=== PATIENT | female | born 1935 | race Two or more races ===

== ENCOUNTER 2023-03-05 04:59 | Inpatient (IN) | payer MEDICAID, OTHER ==
[~2023-03-05] VITALS: Ht 152.4 cm; Wt 59.8 kg
[2023-03-05] VITALS (12 sets, daily range): BP systolic 101–110; BP diastolic 47–63; PULSE 77–113; RESP 16–20; TEMP 97.7–98; O2SAT 93–100
[2023-03-05] MEDS ORDERED: FUROSEMIDE 40 MG/4 ML VIAL IV ONE (05:15)
[2023-03-05] MEDS ORDERED: PIPERACILLIN-TAZOB 3.375GM 100 ML IV ONE (05:15)
[2023-03-05] MEDS ORDERED: ALBUTEROL SULF 2.5 MG/0.5ML(0.5%) NEB SOLN HHN ONE (05:15)
[2023-03-05 05:55] LABS: Alanine Aminotransferase 25 U/L (7-40); Albumin 3.3 g/dL (3.2-4.8); Alkaline Phosphatase 136 U/L (46-116); Anion Gap 9 (5-15); Aspartate Aminotransferase 44 U/L (13-40); BUN/Creatinine Ratio 13.5 (10.0-20.0); Bilirubin, Total 0.3 mg/dL (0.2-1.0); Blood Urea Nitrogen 15 mg/dL (9-23); Calcium 7.2 mg/dL (8.7-10.4); Carbon Dioxide 22 mmol/L (20-30); Chloride 104 mmol/L (98-107); Glucose 149 mg/dL (74-106); Magnesium 1.7 mg/dL (1.6-2.6); Potassium 3.4 mmol/L (3.5-5.1); Sodium 135 mmol/L (136-145)
[2023-03-05 06:00] LABS: Basophils # (auto) 0.1 10 ^3/uL (0-0.2); Eosinophils # (auto) 0 10 ^3/uL (0-0.8); Hemoglobin 7.5 g/dL (12.2-16.2); Nucleated Red Blood Cells % 0.2 %
[2023-03-05 06:05] LABS: Lactic Acid w/Reflex 2.7 mmol/L (0.4-2.0)
[2023-03-05 06:08] LABS: Basophils % (auto) 0.5 % (0.0-2.0); Hematocrit 26.5 % (36.0-46.0); Lymphocytes # (auto) 3.7 10 ^3/uL (0.4-5.4); Lymphocytes % (auto) 19.9 % (10.0-50.0); Mean Corpuscular Hemoglobin 18.5 pg (28.0-32.0); Mean Corpuscular Hgb Conc. 28.3 g/dL (32.0-36.0); Mean Corpuscular Volume 65.4 fL (80.0-100.0); Monocytes # (auto) 1.7 10 ^3/uL (0-1.3); Monocytes % (auto) 8.9 % (0.0-12.0); Neutrophils # (auto) 13.3 10 ^3/uL (1.6-8.6); Neutrophils % (auto) 70.7 % (37.0-80.0); Red Blood Cells 4.05 10^6/uL (4.0-5.20); White Blood Cell 18.8 10^3/uL (4.4-10.8)
[2023-03-05 06:13] LABS: Red Cell Distribution Width 22.8 % (11.8-14.3)
[2023-03-05 06:21] LABS: Rapid Influenza A Negative (Negative); Rapid Influenza B Negative (Negative)
[2023-03-05 06:23] LABS: Urine Bacteria FEW /hpf (None Seen); Urine Blood 3+ /uL (Negative); Urine Clarity Clear (Clear); Urine Color Yellow (Yellow); Urine Hyaline Cast FEW /lpf (0 - 2); Urine Mucus FEW (None Seen); Urine Protein, UAD 3+ (Negative); Urine Specific Gravity 1.018 (1.001-1.035); Urine Urobilinogen Normal (Negative); Urine WBC 10 /hpf (0 - 5); Urine pH 6.5 (5.0-8.0)
[2023-03-05] MEDS ORDERED: ALBUTEROL MEDNEB 2.5 mg/3ml NEB ONE (06:28)
[2023-03-05] MEDS ORDERED: levoFLOXacin 500MG 100 ML IV ONE (06:30)
[2023-03-05 06:40] LABS: Anisocytosis Slight; Hypochromia Marked; Platelet Estimate Increased
[2023-03-05 07:07] LABS: COVID19 ANTIGEN SOFIA FIA NEGATIVE (NEGATIVE)
[2023-03-05] MEDS ORDERED: SODIUM CHLORIDE 0.9% 2,250 ML IV ONE (07:30)
[2023-03-05] MEDS ORDERED: IOHEXOL 300 MG/ML 100ML BOTTLE IJ ONE (08:00)
[2023-03-05] MEDS ORDERED: ACETAMINOPHEN 325 MG TAB PO PRN (12:15)
[2023-03-05] MEDS ORDERED: NITROGLYCERIN 0.4 MG SL TAB SL PRN (12:15)
[2023-03-05] MEDS ORDERED: ALBUTEROL MEDNEB 2.5 mg/3ml NEB NEB PRN (12:15)
[2023-03-05] MEDS ORDERED: ONDANSETRON HCL 4 MG/2 ML VIAL IV PRN (12:15)
[2023-03-05] MEDS ORDERED: VANCOMYCIN PER PHARMACY 0 MG IV SCH (12:15)
[2023-03-05] MEDS ORDERED: MORPHINE SULFATE INJ 2 MG/ml SYRG IV PRN (12:15)
[2023-03-05] MEDS ORDERED: POTASSIUM EFFERVESENT TAB 25 MEQ PO ONE (12:15)
[2023-03-05] MEDS ORDERED: CEFEPIME 1GM/ 50ML 50 ML IV ONE (12:15)
[2023-03-05] MEDS ORDERED: methylPREDNISolone SOD SUCC 125 MG/2 ML VL IV ONE (12:15)
[2023-03-05] MEDS ORDERED: PANTOPRAZOLE 40 MG/10 ML VIAL INJ IV ONE (12:30)
[2023-03-05 12:39] LABS: Triglycerides 78 mg/dL (< 150)
[2023-03-05 12:40] LABS: LDL Cholesterol 79 mg/dL (< 100)
[2023-03-05 12:41] LABS: Cholesterol 123 mg/dL (< 200); HDL Cholesterol 35 mg/dL (40-59)
[2023-03-05] MEDS ORDERED: VANCOMYCIN 1GM/200ML 250 ML IV ONE (13:00)
[2023-03-05] MEDS: SODIUM CHLORIDE 0.9% 1,000 ML IV SCH (15:09)
[2023-03-05] MEDS: IPRATROPIUM BROM 0.5 MG/2.5ML INH SOL NEB SCH ×3 (15:15→22:01)
[2023-03-05] MEDS: ALBUTEROL MEDNEB 2.5 mg/3ml NEB NEB SCH ×3 (15:15→22:01)
[2023-03-05 15:27] LABS: Base Excess -2.6 mmol/L (-2.0-2.0)
[2023-03-05] MEDS: CEFEPIME 1GM/ 50ML 50 ML IV SCH (21:29)
[2023-03-05] MEDS: methylPREDNISolone SOD SUCC 40 MG/ML VL IV SCH (21:29)
[2023-03-06] VITALS (21 sets, daily range): BP systolic 101–143; BP diastolic 44–63; PULSE 75–107; RESP 12–20; TEMP 97.6–98.2; O2SAT 97–100
[2023-03-06] MEDS: SODIUM CHLORIDE 0.9% 1,000 ML IV SCH ×3 (01:35→22:02)
[2023-03-06 01:41] LABS: Lactic Acid w/Reflex 2.4 mmol/L (0.4-2.0)
[2023-03-06] MEDS: ALBUTEROL MEDNEB 2.5 mg/3ml NEB NEB SCH ×6 (02:14→22:22)
[2023-03-06] MEDS: IPRATROPIUM BROM 0.5 MG/2.5ML INH SOL NEB SCH ×6 (02:14→22:22)
[2023-03-06 05:38] LABS: Basophils # (auto) 0 10 ^3/uL (0-0.2); Eosinophils # (auto) 0 10 ^3/uL (0-0.8); Hemoglobin 7.1 g/dL (12.2-16.2)
[2023-03-06 05:46] LABS: Hematocrit 24.9 % (36.0-46.0); Lymphocytes # (auto) 1.3 10 ^3/uL (0.4-5.4); Lymphocytes % (auto) 7.5 % (10.0-50.0); Mean Corpuscular Hemoglobin 18.2 pg (28.0-32.0); Mean Corpuscular Hgb Conc. 28.5 g/dL (32.0-36.0); Monocytes # (auto) 0.4 10 ^3/uL (0-1.3); Monocytes % (auto) 2.2 % (0.0-12.0); Neutrophils # (auto) 15.3 10 ^3/uL (1.6-8.6); Neutrophils % (auto) 90.3 % (37.0-80.0); Red Blood Cells 3.89 10^6/uL (4.0-5.20); White Blood Cell 16.9 10^3/uL (4.4-10.8)
[2023-03-06 05:48] LABS: Alanine Aminotransferase 18 U/L (7-40); Alkaline Phosphatase 94 U/L (46-116); Anion Gap 8 (5-15); Aspartate Aminotransferase 42 U/L (13-40); BUN/Creatinine Ratio 16.4 (10.0-20.0); Bilirubin, Total 0.3 mg/dL (0.2-1.0); Blood Urea Nitrogen 21 mg/dL (9-23); Calcium 7.1 mg/dL (8.7-10.4); Carbon Dioxide 23 mmol/L (20-30); Chloride 105 mmol/L (98-107); Glucose 179 mg/dL (74-106); Potassium 3.5 mmol/L (3.5-5.1); Sodium 136 mmol/L (136-145); Total Protein 5.7 g/dL (5.7-8.2)
[2023-03-06 06:23] LABS: Red Cell Distribution Width 23.7 % (11.8-14.3)
[2023-03-06] MEDS: VANCOMYCIN 500 MG in D5W 5% 100 ML IV SCH (09:29)
[2023-03-06] MEDS ORDERED: ENOXAPARIN SOD 40 MG/0.4 ML SYRINGE SC SCH (10:00)
[2023-03-06] MEDS: methylPREDNISolone SOD SUCC 40 MG/ML VL IV SCH ×2 (10:43→22:02)
[2023-03-06] MEDS: CEFEPIME 1GM/ 50ML 50 ML IV SCH ×2 (10:43→21:51)
[2023-03-06] MEDS: PANTOPRAZOLE 40 MG/10 ML VIAL INJ IV SCH (10:43)
[2023-03-06 13:09] LABS: Lactic Acid w/Reflex 2.2 mmol/L (0.4-2.0)
[2023-03-06 16:14] LABS: Lactic Acid w/Reflex 2.1 mmol/L (0.4-2.0)
[2023-03-07] VITALS (19 sets, daily range): BP systolic 126–162; BP diastolic 54–73; PULSE 73–104; RESP 16–20; TEMP 97.8–98.8; O2SAT 97–100
[2023-03-07] MEDS: IPRATROPIUM BROM 0.5 MG/2.5ML INH SOL NEB SCH ×3 (02:21→10:21)
[2023-03-07] MEDS: ALBUTEROL MEDNEB 2.5 mg/3ml NEB NEB SCH ×4 (02:21→13:21)
[2023-03-07] MEDS: VANCOMYCIN 500 MG in D5W 5% 100 ML IV SCH (05:12)
[2023-03-07] MEDS: PANTOPRAZOLE 40 MG/10 ML VIAL INJ IV SCH (09:28)
[2023-03-07] MEDS: methylPREDNISolone SOD SUCC 40 MG/ML VL IV SCH (09:28)
[2023-03-07] MEDS: CEFEPIME 1GM/ 50ML 50 ML IV SCH ×2 (09:29→21:33)
[2023-03-07] MEDS ORDERED: ENOXAPARIN SOD 30 MG/0.3 ML SYRINGE SC SCH (10:00)
[2023-03-07] MEDS ORDERED: ENOXAPARIN SOD 30 MG/0.3 ML SYRINGE SC ONE (11:15)
[2023-03-07 11:44] LABS: Basophils # (auto) 0 10 ^3/uL (0-0.2); Basophils % (auto) 0.1 % (0.0-2.0); Eosinophils # (auto) 0 10 ^3/uL (0-0.8); Hematocrit 24.2 % (36.0-46.0); Lymphocytes # (auto) 1.7 10 ^3/uL (0.4-5.4); Lymphocytes % (auto) 7.2 % (10.0-50.0); Mean Corpuscular Hemoglobin 18.4 pg (28.0-32.0); Mean Corpuscular Hgb Conc. 28.8 g/dL (32.0-36.0); Monocytes # (auto) 0.7 10 ^3/uL (0-1.3); Monocytes % (auto) 2.8 % (0.0-12.0); Neutrophils # (auto) 21.6 10 ^3/uL (1.6-8.6); Neutrophils % (auto) 89.9 % (37.0-80.0); Nucleated Red Blood Cells % 0.1 %; Red Blood Cells 3.78 10^6/uL (4.0-5.20); White Blood Cell 24.1 10^3/uL (4.4-10.8)
[2023-03-07] MEDS ORDERED: HEPARIN DRIP/D5W 100UNITS/ML 250 ML IV SCH ×2 (11:45→23:30)
[2023-03-07] MEDS ORDERED: HEPARIN SODIUM (PORCINE) 5000 UNITS/ML 1ML VIAL IV ONE (11:45)
[2023-03-07 11:51] LABS: Red Cell Distribution Width 23.7 % (11.8-14.3)
[2023-03-07 11:57] LABS: INR 1.01 (0.9-1.15); Partial Thromboplastin Time 38.6 SEC (24.5-34.5); Prothrombin Time 10.6 sec (9.3-11.8)
[2023-03-07 11:58] LABS: Alanine Aminotransferase 22 U/L (7-40); Albumin 3.2 g/dL (3.2-4.8); Alkaline Phosphatase 93 U/L (46-116); Anion Gap 10 (5-15); Aspartate Aminotransferase 36 U/L (13-40); BUN/Creatinine Ratio 23.3 (10.0-20.0); Blood Urea Nitrogen 30 mg/dL (9-23); Calcium 7.4 mg/dL (8.7-10.4); Carbon Dioxide 19 mmol/L (20-30); Chloride 104 mmol/L (98-107); Glucose 194 mg/dL (74-106); Potassium 3.7 mmol/L (3.5-5.1); Sodium 133 mmol/L (136-145)
[2023-03-07 11:59] LABS: Bilirubin, Total 0.3 mg/dL (0.2-1.0)
[2023-03-07 12:18] LABS: Anisocytosis Moderate; Hypochromia Moderate
[2023-03-07 12:19] LABS: Platelet Estimate Increased; Tear Drop Cells FEW
[2023-03-07] MEDS: SODIUM CHLORIDE 0.9% 1,000 ML IV SCH (16:45)
[2023-03-07] MEDS ORDERED: ALBUTEROL MEDNEB 2.5 mg/3ml NEB NEB PRN (18:00)
[2023-03-07 19:09] LABS: Basophils # (auto) 0 10 ^3/uL (0-0.2); Eosinophils # (auto) 0 10 ^3/uL (0-0.8); Hemoglobin 8.7 g/dL (12.2-16.2); Nucleated Red Blood Cells % 0.2 %
[2023-03-07 19:10] LABS: Hematocrit 30.5 % (36.0-46.0); Lymphocytes # (auto) 1.3 10 ^3/uL (0.4-5.4); Lymphocytes % (auto) 6.8 % (10.0-50.0); Mean Corpuscular Hemoglobin 20.1 pg (28.0-32.0); Mean Corpuscular Hgb Conc. 28.6 g/dL (32.0-36.0); Mean Corpuscular Volume 70.3 fL (80.0-100.0); Monocytes # (auto) 0.4 10 ^3/uL (0-1.3); Monocytes % (auto) 2.3 % (0.0-12.0); Neutrophils # (auto) 17.6 10 ^3/uL (1.6-8.6); Neutrophils % (auto) 90.9 % (37.0-80.0); Red Blood Cells 4.33 10^6/uL (4.0-5.20); White Blood Cell 19.3 10^3/uL (4.4-10.8)
[2023-03-07 19:12] LABS: Red Cell Distribution Width 26.2 % (11.8-14.3)
[2023-03-08] VITALS (9 sets, daily range): BP systolic 147–169; BP diastolic 47–60; PULSE 60–71; RESP 16–20; TEMP 97.9–98.8; O2SAT 96–100
[2023-03-08] MEDS: VANCOMYCIN 500 MG in D5W 5% 100 ML IV SCH (01:34)
[2023-03-08 05:14] LABS: Basophils # (auto) 0 10 ^3/uL (0-0.2); Eosinophils # (auto) 0 10 ^3/uL (0-0.8); Monocytes # (auto) 0.5 10 ^3/uL (0-1.3); Nucleated Red Blood Cells % 0.2 %
[2023-03-08 05:17] LABS: Basophils % (auto) 0.1 % (0.0-2.0); Hematocrit 29.5 % (36.0-46.0); Lymphocytes # (auto) 1.8 10 ^3/uL (0.4-5.4); Lymphocytes % (auto) 10.9 % (10.0-50.0); Mean Corpuscular Hemoglobin 20.9 pg (28.0-32.0); Mean Corpuscular Hgb Conc. 30.5 g/dL (32.0-36.0); Mean Corpuscular Volume 68.6 fL (80.0-100.0); Neutrophils # (auto) 13.9 10 ^3/uL (1.6-8.6); White Blood Cell 16.2 10^3/uL (4.4-10.8)
[2023-03-08 05:33] LABS: Alanine Aminotransferase 24 U/L (7-40); Alkaline Phosphatase 82 U/L (46-116); Anion Gap 8 (5-15); BUN/Creatinine Ratio 24.3 (10.0-20.0); Blood Urea Nitrogen 27 mg/dL (9-23); Calcium 7.4 mg/dL (8.7-10.4); Carbon Dioxide 20 mmol/L (20-30); Chloride 107 mmol/L (98-107); Glucose 138 mg/dL (74-106); Magnesium 2.2 mg/dL (1.6-2.6); Potassium 4.3 mmol/L (3.5-5.1); Sodium 135 mmol/L (136-145)
[2023-03-08 05:34] LABS: Albumin 2.9 g/dL (3.2-4.8); Aspartate Aminotransferase 37 U/L (13-40)
[2023-03-08 05:35] LABS: Bilirubin, Total 0.4 mg/dL (0.2-1.0); Total Protein 5.7 g/dL (5.7-8.2)
[2023-03-08 05:38] LABS: Red Cell Distribution Width 25.5 % (11.8-14.3)
[2023-03-08 05:47] LABS: INR 1.03 (0.9-1.15); Prothrombin Time 10.8 sec (9.3-11.8)
[2023-03-08 06:08] LABS: Partial Thromboplastin Time > 139.0 SEC (24.5-34.5)
[2023-03-08 06:18] LABS: CRP High Sensitivity 2.87 mg/dL (<1.0)
[2023-03-08] MEDS ORDERED: HEPARIN DRIP/D5W 100UNITS/ML 250 ML IV SCH (06:45)
[2023-03-08 08:08] LABS: Anisocytosis Slight; Hypochromia Moderate; Platelet Estimate Increased
[2023-03-08] MEDS ORDERED: ENOXAPARIN SOD 60 MG/0.6 ML SYRINGE SC SCH (10:00)
[2023-03-08] MEDS: CEFEPIME 1GM/ 50ML 50 ML IV SCH (10:06)
[2023-03-08] MEDS: PANTOPRAZOLE 40 MG/10 ML VIAL INJ IV SCH (10:09)
[2023-03-08 10:18] LABS: Hepatitis B Surface Antigen Negative (Negative)
[2023-03-08 10:39] LABS: Hepatitis C Antibody Negative (Negative)
[2023-03-08] MEDS ORDERED: DOXY-447 PO (12:13)
[2023-03-08] MEDS ORDERED: APIX5TAB PO (12:13)
[2023-03-08] MEDS: SODIUM CHLORIDE 0.9% 1,000 ML IV SCH (12:45)
[2023-03-08 13:39] LABS: Basophils # (auto) 0 10 ^3/uL (0-0.2); Basophils % (auto) 0.1 % (0.0-2.0); Eosinophils # (auto) 0 10 ^3/uL (0-0.8); Hematocrit 30.2 % (36.0-46.0); Hemoglobin 8.9 g/dL (12.2-16.2); Lymphocytes # (auto) 1.9 10 ^3/uL (0.4-5.4); Mean Corpuscular Hemoglobin 20.6 pg (28.0-32.0); Mean Corpuscular Hgb Conc. 29.5 g/dL (32.0-36.0); Mean Corpuscular Volume 70.1 fL (80.0-100.0); Monocytes # (auto) 0.6 10 ^3/uL (0-1.3); Monocytes % (auto) 4.4 % (0.0-12.0); Neutrophils # (auto) 12.2 10 ^3/uL (1.6-8.6); Neutrophils % (auto) 82.5 % (37.0-80.0); Nucleated Red Blood Cells % 0.3 %; Red Blood Cells 4.31 10^6/uL (4.0-5.20); White Blood Cell 14.7 10^3/uL (4.4-10.8)
[2023-03-08 13:40] LABS: Red Cell Distribution Width 24.9 % (11.8-14.3)
[2023-03-08 13:52] LABS: INR 1.01 (0.9-1.15); Partial Thromboplastin Time 57.8 SEC (24.5-34.5); Prothrombin Time 10.6 sec (9.3-11.8)
[2023-03-08] MEDS ORDERED: MUPI2OIN2 EX (13:54)
[2023-03-08] MEDS ORDERED: MUPIROCIN 2% OINT 15gm or 22gm FOR MRSA NARES EACHNOSTRI SCH (22:00)
== END 2023-03-08 18:37 | disposition home or self-care (01) | DRG 137 ==
LOC: ER 04:59 → EDBD 04:59 → TELE 12:17 → TELE-WESTW 17:25
PROVIDERS: ADMIT Internal Medicine Pulmonary Disease; ATTEND Internal Medicine Pulmonary Disease
PROC: 5A09357 Assistance with Respiratory Ventilation, Less than 24 Consecutive Hours, Continuous Positive Airway Pressure (ICD-10-PCS; 2023-03-05)
PROC: 30233N1 Transfusion of Nonautologous Red Blood Cells into Peripheral Vein, Percutaneous Approach (ICD-10-PCS; principal; 2023-03-07)
DX: J15.69 Pneumonia due to other Gram-negative bacteria (principal); J96.01 Acute respiratory failure with hypoxia; I21.A1 Myocardial infarction type 2; I50.33 Acute on chronic diastolic (congestive) heart failure; I82.403 Acute embolism and thrombosis of unspecified deep veins of lower extremity, bilateral; D69.6 Thrombocytopenia, unspecified; J15.9 Unspecified bacterial pneumonia; N17.9 Acute kidney failure, unspecified; D50.9 Iron deficiency anemia, unspecified; E87.6 Hypokalemia; N18.31 Chronic kidney disease, stage 3a; R73.9 Hyperglycemia, unspecified; Z20.822 Contact with and (suspected) exposure to COVID-19; Z71.3 Dietary counseling and surveillance
CPT/HCPCS: 36415; 36600; 71045; 71260; 74177; 76705; 80053; 80061; 80202; 81001; 82565; 82805; 83036; 83605; 83735; 83880; 84443; 84484; 85025; 85379; 85610; 85730; 86141; 86803; 86850; 86900; 86901; 86920; 87040; 87081; 87340; 87426; 87804; 93005; 93306; 93970; 94640; 96365; 96366; 96367; 96375; 97110; 97116; 97163; 97530; 99291; C9113; G0378; J1956; J2543; J7060